=== PATIENT | male | born 1965 | race Caucasian/White ===

== ENCOUNTER → 2018-01-18 | Outpatient (CLI) | payer OTHER | END | disposition home or self-care (01) | LOC: OIH 14:00 | PROVIDERS: ATTEND Internal Medicine Cardiovascular Disease | DX: Z13.6 Encounter for screening for cardiovascular disorders (principal) | CPT/HCPCS: 75571 ==

== ENCOUNTER → 2020-05-22 | Outpatient (CLI) | payer MEDICARE | END | disposition home or self-care (01) | LOC: RAH 13:34 | PROVIDERS: ATTEND Physical Medicine & Rehabilitation | DX: M25.512 Pain in left shoulder (principal); M25.511 Pain in right shoulder; M75.102 Unspecified rotator cuff tear or rupture of left shoulder, not specified as traumatic | CPT/HCPCS: 73030 ==

== ENCOUNTER → 2020-08-23 | Outpatient (CLI) | payer MEDICARE | END | disposition home or self-care (01) | LOC: RAH 14:57 | PROVIDERS: ATTEND Physical Medicine & Rehabilitation | DX: M54.5 Low back pain (principal) | CPT/HCPCS: 72110 ==

== ENCOUNTER → 2023-04-27 | Outpatient (CLI) | payer MEDICARE | END | disposition home or self-care (01) | LOC: RAH 04-20 10:35 | PROVIDERS: ATTEND Physical Medicine & Rehabilitation | DX: M47.26 Other spondylosis with radiculopathy, lumbar region (principal); M51.16 Intervertebral disc disorders with radiculopathy, lumbar region; M48.061 Spinal stenosis, lumbar region without neurogenic claudication; M25.561 Pain in right knee; M22.2X1 Patellofemoral disorders, right knee | CPT/HCPCS: 72148; 73721 ==

== ENCOUNTER → 2024-10-30 | Outpatient (CLI) | payer MEDICARE ==
--- NOTE | 2024-10-30 11:30 | HMCIMG ---
MR SPINAL CANAL, LUMBAR WO CON HISTORY: Pain COMPARISON: None TECHNIQUE: MRI of the lumbar spine was performed utilizing multiple pulse sequences in axial , coronal and sagittal plane. Patient was not given contrast through intravenous route. FINDINGS: No abnormal signal intensity is seen of the visualized bony structure. No loss of vertebral height is seen. There is straightening of normal lumbar curvature which may be related to muscle spasm or positioning. Degenerative disc signals are present at T12-L1 through L4-L5 levels. Visualized distal conus is unremarkable. At the L1-L2 level, there is mild annular disc bulge with bilateral ligamentum flavum hypertrophy measuring 2.8 mm in thickness causing anterior thecal sac compression with bilateral lateral recess stenosis and minimal bilateral neural foraminal stenosis. The thecal sac measures approximately 8.2 mm in its anterior posterior dimension. At the L2-3 level, there is mild annular disc bulge with bilateral ligamentum flavum hypertrophy measuring 2.9 mm in thickness causing anterior thecal sac compression with bilateral lateral recess stenosis and minimal bilateral neural foraminal stenosis. The thecal sac measures approximately 8.2 mm in its anterior posterior dimension. At the L3-4 level, there is mild annular disc bulge with bilateral ligamentum flavum hypertrophy measuring 2.8 mm in thickness and bilateral facet hypertrophy and causing anterior thecal sac compression with bilateral lateral recess stenosis and minimal bilateral neural foraminal stenosis. The thecal sac measures approximately 5.1 mm in its anterior posterior dimension. At the L4-5 level, there is mild annular disc bulge or disc protrusion and bilateral facet hypertrophy with bilateral ligamentum flavum hypertrophy measuring 4.8 mm in thickness causing anterior thecal sac compression with bilateral lateral recess stenosis and mild bilateral neural foraminal stenosis. The thecal sac measures approximately 4.9 mm in its anterior posterior dimension. IMPRESSION: 1. DJD with lumbar spine spondylosis worse at L3-4 and L4-5 levels as described above.
== END | disposition home or self-care (01) ==
LOC: RAH 10:38
PROVIDERS: ATTEND Anesthesiology Pain Medicine
DX: M47.815 Spondylosis without myelopathy or radiculopathy, thoracolumbar region (principal); M48.062 Spinal stenosis, lumbar region with neurogenic claudication; M51.369 Other intervertebral disc degeneration, lumbar region without mention of lumbar back pain or lower extremity pain
CPT/HCPCS: 72148

== ENCOUNTER → 2025-08-14 | Outpatient (CLI) | payer MEDICARE ==
--- NOTE | 2025-08-14 17:16 | HMCIMG ---
EXAM: MR left Lower Extremity without Intravenous Contrast. CLINICAL HISTORY: M16 Osteoarthritis of hip TECHNIQUE: Multisequence, multiplanar magnetic resonance images of the left lower extremity without intravenous contrast. Series acquired: 4 - COR STIR LT - TR: 4656.0 - TE: 52.3 - ET: 15.0 - Thk: 4.0 5 - COR T2 LT - TR: 4921.0 - TE: 97.5 - ET: 12.0 - Thk: 4.0 6 - COR T1 LT - TR: 611.0 - TE: 17.1 - ET: 6.0 - Thk: 4.0 7 - AX T2 FS LT - TR: 4538.0 - TE: 65.0 - ET: 16.0 - Thk: 4.0 9 - AX T1 LT - TR: 593.0 - TE: 13.3 - ET: 9.0 - Thk: 4.0 10 - AX STIR LT - TR: 4248.0 - TE: 47.2 - ET: 15.0 - Thk: 4.0 11 - SAG T2 LT - TR: 5312.0 - TE: 104.9 - ET: 14.0 - Thk: 4.0 12 - SAG 2D MERGE LT - TR: 1059.2 - TE: 13.9 - ET: 4.0 - Thk: 4.0 CONTRAST: COMPARISON: None provided. FINDINGS: SOFT TISSUES: The soft tissues are unremarkable. JOINTS: Mild degenerative changes. Joint space narrowing. No subchondral change or focal chondral defect. Reproductive change BONES: No acute fracture or aggressive appearing osseous lesion. IMPRESSION: Mild degenerative changes. /[place]
--- NOTE | 2025-08-14 19:16 | HMCIMG ---
EXAM: MR RIGHT HIP WITHOUT CONTRAST CLINICAL HISTORY: Osteoarthritis. TECHNIQUE: Multiplanar multisequence magnetic resonance images were obtained WITHOUT contrast. CONTRAST: None COMPARISON: None FINDINGS: JOINTS: A small right hip joint effusion is seen. No dislocation. BONE: No acute fracture or focal osseous lesion. SOFT TISSUES: Grade 1 and grade 2 sprains of the gluteus medius and gluteus minimus tendons. IMPRESSION: 1. Small right hip joint effusion. 2. Grade 1 and grade 2 sprains of the gluteus medius and gluteus minimus tendons. /[place]
== END | disposition home or self-care (01) ==
LOC: RAH 10:39
PROVIDERS: ATTEND Family Medicine
DX: S73.191A Other sprain of right hip, initial encounter (principal); M16.0 Bilateral primary osteoarthritis of hip; M25.451 Effusion, right hip; X58.XXXA Exposure to other specified factors, initial encounter; Y93.89 Activity, other specified; Y92.89 Other specified places as the place of occurrence of the external cause; Y99.8 Other external cause status
CPT/HCPCS: 73721